=== PATIENT | female | born 1975 | race Asian ===

== ENCOUNTER 2018-04-22 09:18 | Outpatient (CLI) | payer OTHER ==
--- NOTE | 2018-04-26 14:17 | MMO ---
MAMMOGRAM DIGITAL SCREENING BILATERAL: DATE: 04/22/18 HISTORY: 42-year-old female for routine bilateral screening mammogram. COMPARISON: 05/04/17 and 01/24/16. TECHNIQUE: Digital mammographic views. Computer-aided detection (CAD) utilized. FINDINGS: The breasts are extremely dense, which lowers the sensitivity of mammography. There is no evidence of suspicious mass, suspicious calcifications, or architectural distortion. The re is no significant interval change since the prior mammogram. IMPRESSION: 1) BIRADS 1- Negative. 2) Recommendation: routine bilateral annual screening mammogram (unless the patient develops suspicio us clinical findings that would warrant earlier imaging follow up). [place] [] POS: [facility]
== END 2018-04-22 09:19 | disposition home or self-care (01) ==
LOC: SCSMAMMO 09:18
PROVIDERS: ATTEND Family Medicine
DX: Z12.31 Encounter for screening mammogram for malignant neoplasm of breast (principal)
CPT/HCPCS: 77067

== ENCOUNTER 2018-10-21 15:02 | Outpatient (CLI) | payer OTHER ==
--- NOTE | 2018-10-21 17:18 | ULT ---
PELVIC ULTRASOUND: Date: 10-21-18 History: Amenorrhea. FINDINGS: Multiple transabdominal and endovaginal sonographic images of the pelvis are obtained. The uterus demonstrates a normal sonographic appearance and measures 9.5 x 5.1 x 4 cm. The endometria l stripe measures 0.8 cm in thickness, which is within normal limits in a pre-menopausal patient. The ovaries demonstrate a normal sonographic appearance bilaterally. The right ovary measures 2.6 x 1 .6 x 1.7 cm with the left ovary measuring 2.3 cm x 1.7 cm x 1.1 cm. Doppler evaluation of each ovary with spectral analysis and color flow evaluation demonstrates arteri al flow in each ovary. No free fluid is seen in the pelvis. IMPRESSION: 1. Normal appearing uterus and bilateral ovaries. 2. Endometrial stripe thickness is 0.8 cm which is within normal limits in a pre-menopausal patient. No fluid or fluid collection is seen in the endometrial canal. This endometrial thickness would be ab normal in a post- menopausal female patient. POS: [facility]
== END 2018-10-21 15:03 | disposition home or self-care (01) ==
LOC: SCSULT 15:02
PROVIDERS: ATTEND Family Medicine
DX: N91.2 Amenorrhea, unspecified (principal); R93.89 Abnormal findings on diagnostic imaging of other specified body structures
CPT/HCPCS: 76856